=== PATIENT | female | born 1990 | race Caucasian/White ===

== ENCOUNTER 2022-08-22 13:17 | Inpatient (IN) | payer BC, OTHER, SELFPAY ==
[2022-08-22] VITALS (8 sets, daily range): BP systolic 120–145; BP diastolic 62–98; PULSE 85–106; BMI 34.3
[2022-08-22 15:08] LABS: Basophils Percent Auto 0.2 % (0.2-1.2); Eosinophils Percent Auto 0.1 % (0-4.4); Hematocrit 39.9 % (37.0-47.0); Hemoglobin 13.1 g/dL (12.0-15.0); Immature Granulocyte Absolute 0.05 K/mm3 (0.00-0.031); Immature Granulocyte Percent A 0.5 % (0-0.5); Lymphocytes Absolute Auto 1.89 K/mm3 (0.9-3.2); Lymphocytes Percent Auto 18.8 % (18.3-44.2); Mean Corpuscular HGB Conc 32.8 g/dl (32-36); Mean Corpuscular Volume 91.3 fl (80-100); Monocytes Absolute Auto 0.7 K/mm3 (0.1-0.6); Monocytes Percent Auto 7.2 % (2.6-8.5); Neutrophils Absolute Auto 7.4 K/mm3 (1.3-6.7); Neutrophils Percent Auto 73.2 % (45.5-73.1); Platelet Count Result 234 k/mm3 (150-375); Red Blood Count 4.37 M/mm3 (4.2-5.4); Red Cell Distribution Width 13.3 % (11.5-14.5); White Blood Count 10.1 K/mm3 (4.5-10.0)
[2022-08-22] MEDS: miSOPROStol 25 MCG TABLET BY MOUTH ×2 (15:13→19:45)
--- NOTE | 2022-08-22 15:17 | LDADM ---
This patient, Abi Hopkins, was admitted to Labor/Delivery/Recovery 109 on 08/22/22 at 13:17. Plans for labor, pain management and were discussed with patient. Patient/family oriented to hospital policies and general routines including ID bracelet, bed and alarms, visiting hours, pain management, procedures, bathroom and other care routines, personal items, smoking policy, room service/diet and guest tray routines, security routines, and visiting hours. Patient/Family are encouraged to report perceived risks to care and to ask questions if they do not understand what they are told or what they should do. See OBIX for further documentation.
--- NOTE | 2022-08-22 16:54 | WPDOBADMIT ---
Obstetrics - Admit Note Admission Note: record reviewed. No pertinent additions to the history and/or any subsequent changes in the physical findings that are not consistent with the expected course of the were found. Admit for IOL, pt was in office today with some decreased movements. BPP revealed oligohydramnios, cytotec , anticipate vaginal delivery Additions to the history and/or subsequent changes in the physical findings follow. None.
--- NOTE | 2022-08-22 17:38 | P.PNAN_ITS ---
Anes - Eval Pre Procedure Procedure: labor epidural Date/Time: 08/22/22 17:38 Pre Op Diagnosis: Induction of Labor Patient Data Age: 32 Gender: F Height: 1.66 m Weight: 95 kg Last Vital Signs O2 Del Method Room Air 08/22/22 15:16 Allergies Allergy/AdvReac Type Severity Reaction Status Date / Time erythritol Allergy Hives Verified 08/18/22 16:07 Home Medications Medication Instructions Recorded Confirmed Type No Home Medications 08/18/22 08/18/22 History Laboratory Tests 08/22/22 14:27 WBC 10.1 H K/mm3 (4.5-10.0) RBC 4.37 M/mm3 (4.2-5.4) Hgb 13.1 g/dL (12.0-15.0) Hct 39.9 % (37.0-47.0) MCV 91.3 fl (80-100) MCH 30.0 pg (26-34) MCHC 32.8 g/dl (32-36) RDW 13.3 % (11.5-14.5) Plt Count 234 k/mm3 (150-375) MPV 11.0 H fl (7.4-10.4) Immature Gran % (Auto) 0.5 % (0-0.5) Neut % (Auto) 73.2 H % (45.5-73.1) Lymph % (Auto) 18.8 % (18.3-44.2) [place] % (Auto) 7.2 % (2.6-8.5) Eos % (Auto) 0.1 % (0-4.4) Baso % (Auto) 0.2 % (0.2-1.2) Lymph # (Auto) 1.89 K/mm3 (0.9-3.2) [place] # (Auto) 0.7 H K/mm3 (0.1-0.6) Eos # (Auto) 0.0 K/mm3 (0-0.3) Baso # (Auto) 0.0 K/mm3 (0.0-0.1) Abs Immat Gran (auto) 0.05 H K/mm3 (0.00-0.031) Absolute Neuts (auto) 7.4 H K/mm3 (1.3-6.7) Absolute Nucleated RBC 0.0 K/mm3 (0.0-0.012) Nucleated RBC % 0.0 % (0.0-0.2) RPR Pending Blood Type O Positive Antibody Screen Negative Patient hx anesthesia problems: none Family hx anesthesia problems: none Results Review: All pre-operative results and documents have been reviewed as part of the pre- operative evaluation. [facility] Past Medical History Medical History (Updated 08/22/22 @ 17:39 by Martina oCllado CRNA) Asthma Obese Family History Family History Grandparent Congestive heart failure Grandparent Breast cancer Sibling Breast cancer Social History Social History Smoking status: Never smoker Substance use: never Lack of Transportation: No Lack of Food: Never True Current Housing: I Have Housing Concerned About Future Housing: No Difficulty Paying Gas/Electric Bills: No Difficulty Paying for Meds: No Currently Unemployed: No Education: Associate Degree Difficulty w/ Childcare or Family Care: No Spiritual care concerns: No Exam Day of Procedure 08/22/22 17:38 Patient weight: obese Heart: regular rate and rhythm Lungs: clear to auscultation Airway: Mallampati scale Neurological: alert and oriented
[2022-08-23] VITALS (108 sets, daily range): BP systolic 71–172; BP diastolic 35–153; PULSE 64–124; RESP 18; TEMP 36.6–37; O2SAT 94–100
[2022-08-23] MEDS: LACTATED RINGERS 1,000 ML 125 ML IV CONT ×3 (00:36→12:24)
[2022-08-23] MEDS: OXYTOCIN 30 UNITS/NS 500 ML 30 UNITS/500 ML BAG IV CONT (00:36)
[2022-08-23] MEDS: FAMOTIDINE 20 MG TABLET PO (04:00)
--- NOTE | 2022-08-23 08:49 | PM.OBPNLAB ---
Pain Control Date/time seen: 08/23/22 08:49 Comments: pt comfortable, occasional contractions, SVE 1.5/60/-2 AROM small amount of clear, odorless fluid, anticipate vaginal delivery
[2022-08-23] MEDS: PHENYLEPHRINE 1,000 MCG/10 ML SYRINGE 100 MCG IV PUSH (12:57)
--- NOTE | 2022-08-23 14:01 | PM.OBPRVD ---
OB - Delivery Note Procedure Delivery date: 08/23/22 Procedure: Events: Oligohydramnios Induction method: AROM, Per Misoprostol Protocol and Per Pitocin Protocol Delivery monitor: External FHT, External Uterine and Internal Uterine Route of delivery: Episiotomy description: None Laceration Description: None Specimen: No Quantitative Blood Loss (ml): 95 Anesthesia type: Epidural Disposition: Floor Baby Date of : 08/23/22 Time of : 13:45 Weeks of gestation at delivery: 37 Infant gender: Female presentation: vertex position: Left Occiput Anterior Placenta delivery description: Spontaneous Cord Vessel Description: 3 Vessels, Clamped/Cut and Delayed Cord Clamping score one minute: 8 score five minutes: 8 Narrative: mother and baby skin to skin in stable condition
[2022-08-23] MEDS: OXYTOCIN 30 UNITS/NS 500 ML 30 UNITS/500 ML BAG 125 UNITS IV CONT (14:10)
[2022-08-23] MEDS: miSOPROStol 200 MCG TABLET 1000 MCG RECTAL (14:40)
[2022-08-23] MEDS: BENZOCAINE 20% AER SPR (*SP) 56 GM CAN 1 SPRAY TOPICAL (15:51)
[2022-08-23] MEDS: OXYTOCIN 10 UNITS/ML VIAL 20 UNITS IM (15:51)
[2022-08-23] MEDS: WITCH HAZEL 40 PADS 1 PAD TOPICAL (15:51)
--- NOTE | 2022-08-23 18:10 | OBPPTRN ---
1638 Patient transferred to post room #282 via W/C. Support person present. Oriented to unit, room, information board, rooming in, admission packet and security measures. Patient verbalizes understanding.
[2022-08-24] MEDS: ACETAMINOPHEN 325 MG TABLET 650 MG PO ×2 (01:13→07:28)
--- NOTE | 2022-08-24 05:48 | PC.NURSE ---
08/24/2022 Be Salmon CNM called and notified that baby is being transferred. Mary Jo had tylenol at 0113 and cannot have another dose at this time. Mary Jo states she takes Motrin at home without any difficulty or side effects. Be Salmon CNM orders patient to have Motrin 600 mg at this time.
[2022-08-24] MEDS: IBUPROFEN 600 MG TABLET PO ×2 (05:51→11:57)
[2022-08-24 05:58] LABS: Hematocrit 33.9 % (37.0-47.0); Hemoglobin 11.4 g/dL (12.0-15.0)
[2022-08-24] MEDS: MULTIVIT/MIN/PREN/FOL AC/IRON TABLET 1 TAB PO (07:28)
[2022-08-24 07:29] VITALS: BP 115/75; PULSE 86; RESP 18; TEMP 36.4; O2SAT 99
--- NOTE | 2022-08-24 10:15 | PM.OBPNVD ---
OB - PN: Subj Subjective Date/time seen: 08/24/22 10:15 vaginal delivery day 1 baby transferred to [facility], doing well pumping and storing pain managed OB - PN: Obj Data Labs 08/24/22 05:54 Labs: Laboratory Results - last 24 hr 08/24/22 05:54 Hgb 11.4 L Hct 33.9 L OB - PN A/P Time Spent With Patient Time: Total time spent is greater than 50% in coordination of care (as documented) at patient's floor/unit and/or counseling patient: Review of Systems Review of Systems: All systems reviewed & are unremarkable except as noted in HPI and below Exam Const: General: cooperative and healthy appearing Chest: Chest palpation & inspection: normal inspection of the chest Resp: Effort & Inspection: normal respiratory effort GI: Inspection: normal to inspection Skin: General skin exam: normal color and no rashes or lesions noted Extrem: General: normal to inspection Psych: Appearance: grossly normal
--- NOTE | 2022-08-24 10:18 | PM.OBDSVD ---
DS: Admitting Diagnosis Discharge Date 08/24/22 Admitting Diagnosis IOL, oligohydramnios DS: Discharge Diagnosis Discharge Diagnosis (1) Vaginal delivery: Code(s): O80 - Encounter for full-term uncomplicated delivery Status: Acute OB - DS: Summary OB Procedures : None OB Procedures Intrapartum: Spontaneous Vag Delivery OB Procedures: : None Time Spent with Patient Time attestation: Total time spent providing and/or coordinating discharge services: DS: Data Data Completed and Pending Labs on day of discharge: Labs from last 24 hours 08/24/22 05:54 Hgb 11.4 L Hct 33.9 L Discharge Plan Discharge Attending physician on discharge: Sagrario Bravo Discharging Clinician: Lorna Salmon Patient Disposition: Home, Self-Care Activity: pelvic rest Diet: regular Patient Instructions: Antibiotic Form Stand Alone Forms: General Discharge Information Follow-up/Referrals: Lorna Salmon CNM [Primary Care Provider] - 4 Weeks Discharge Medications: New ibuprofen 600 mg Tablet 600 mg PO Q6H PRN (Reason: Cramping) Qty: 30 0RF No Action No Home Medications Date of admission: 08/22/22 13:17 Primary Care Provider: Lorna Salmon Admitting Provider: Sagrario Bravo Attending physician on admission: Sagrario Bravo Condition: Stable
--- NOTE | 2022-08-24 13:17 | PC.NURSE ---
0641 Returned to room 282 from the First Floor Nursery.
[2022-08-25 08:43] LABS: Rapid Plasma Reagin Non-Reactive (NonReactive)
[2022-08-26 10:02] VITALS: BP 121/87; PULSE 106; RESP 20; TEMP 36.3; O2SAT 99
== END 2022-08-24 11:59 | disposition home or self-care (01) | DRG 806 ==
LOC: ANHLDR 13:33 → ANHOB2 08-23 17:10
PROVIDERS: Admitting Provider Obstetrics & Gynecology; PCP Advanced Practice Midwife; Visit Provider Obstetrics & Gynecology
DX: O76 Abnormality in fetal heart rate and rhythm complicating labor and delivery (principal); O41.03X0 Oligohydramnios, third trimester, not applicable or unspecified; Z37.0 Single live birth; O43.113 Circumvallate placenta, third trimester; O99.214 Obesity complicating childbirth; Z3A.37 37 weeks gestation of pregnancy
CPT/HCPCS: 36415; 85014; 85018; 85025; 86592; 86850; 86900; 86901; A9270; J2370; J2590; J2795; J7120